=== PATIENT | female | born 1985 | race Hispanic/Latino ===

== ENCOUNTER 2018-01-30 01:52 | Emergency (ER) | payer OTHER ==
[~2018-01-30] VITALS: Ht 149.9 cm; Wt 68.0 kg
--- NOTE | 2018-01-30 02:18 | ED GENERAL ADULT ---
History of Present Illness General Chief Complaint: Chest Pain Stated Complaint: [place] C/O "SHARP CHEST PAIN" X'S 2 HRS Source: patient Exam Limitations: no limitations Vital Signs & Intake/Output Vital Signs & Intake/Output Vital Signs Date Time Temp Pulse Resp B/P B/P Pulse O2 O2 Flow FiO2 Mean Ox Delivery Rate 01/30 0616 98.0 84 18 103/67 98 Room Air 01/30 0459 97.1 79 18 119/63 98 Room Air 01/30 0232 100 Room Air 01/30 0205 97.0 105 18 122/78 97 Room Air Allergies Coded Allergies: No Known Allergies (01/30/18) Reconcile Medications No Known Home Medications Triage Note: TRIAGE: PATIENT TO ER FROM HOME REPORTING SOB/ CHEST DISCOMFORT X 2 HOURS, "LIKE A DISCOMFORT, BLOATED FEELING." DENIES NAUSEA/ ABD PAIN/ V/D. PATIENT REPORTING LAST MENSES 3 WEEKS AGO. EKG NSR, VSS. Triage Nurses Notes Reviewed? yes Onset: Abrupt Duration: week(s): Timing: recent history : No Patient currently breastfeeds: No HPI: 01/30/18 3:14 AM 32-year-old female presents to the emergency Department with shortness of breath. The patient states she was driving home and she felt like there was a weight on her chest and she was having difficulty breathing. She's been having intermittent symptoms over the past month. She saw her primary care doctor who told her it is likely anxiety and/or reactive airway disease; she was given an albuterol pump and she has not used this. She denies any oral contraceptives. She denies any family history of blood clots or coronary artery disease at a young age. She denies any other medical problems or surgical history. Past History Travel History Traveled to [place] past 21 day No Medical History Any Pertinent Medical History? 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 No Review of Systems Review of Systems Constitutional: Denies: fever. EENTM: Denies: visual changes. Respiratory: Reports: short of breath. Denies: cough. Cardiovascular: Denies: chest pain. GI: Denies: abdominal pain. Genitourinary: Reports: no symptoms. Musculoskeletal: Reports: no symptoms. Skin: Reports: no symptoms. Neurological/Psychological: Reports: no symptoms. Hematologic/Endocrine: Reports: no symptoms. Immunologic/Allergic: Reports: no symptoms. Physical Exam Physical Exam General Appearance: well developed/nourished, alert, awake, anxious, mild distress Head: atraumatic, normal appearance Eyes: Bilateral: normal appearance, PERRL, EOMI. Ears, Nose, Throat: normal pharynx, normal ENT inspection Neck: normal inspection, supple, full range of motion Respiratory: normal breath sounds, chest non-tender, no respiratory distress Cardiovascular: regular rate/rhythm Peripheral Pulses: 4+ radial (R), 4+ radial (L) Gastrointestinal: soft, non-tender Back: normal range of motion Extremities: normal inspection Neurologic/Psych: no motor/sensory deficits, awake, alert, oriented x 3 Skin: intact, normal color, warm/dry Core Measures ACS in differential dx? No CVA/TIA Diagnosis: No Sepsis Present: No Sepsis Focused Exam Completed? No Progress Differential Diagnoses I considered the following diagnoses in my evaluation of the patient: [Reactive airway disease acute coronary syndrome, pulmonary embolism, pneumothorax, reactive asthma, anxiety] Plan of Care: Orders Procedure Date/time Status TROPONIN LEVEL 01/30 313 Complete HUMAN BETA HCG SCREEN 01/30 313 Complete D-DIMER 01/30 313 Complete COMPREHENSIVE METABOLIC PANEL 01/30 313 Complete CBC WITHOUT DIFFERENTIAL 01/30 313 Complete EKG 01/30 0155 Active Laboratory Tests 01/30/18 0330: Anion Gap 12, Estimated GFR > 60, BUN/Creatinine Ratio 25.0, Glucose 92, Calcium 9.0, Total Bilirubin 0.2, AST 28, ALT 36, Alkaline Phosphatase 81, Troponin I < 0.01, Total Protein 7.3, Albumin 4.3, Globulin 3.0, Albumin/Globulin Ratio 1.4, Total Beta HCG NEGATIVE, D-Dimer High Sensitivty < 200, CBC w Diff NO MAN DIFF REQ, RBC 4.36, MCV 88.8, MCH 30.6, MCHC 34.5, RDW 13.6, MPV 7.6, Gran % 53.9, Lymphocytes % 37.6, Monocytes % 6.4, Eosinophils % 1.1, Basophils % 1.0, Absolute Granulocytes 4.4, Absolute Lymphocytes 3.1, Absolute Monocytes 0.5, Absolute Eosinophils 0.1, Absolute Basophils 0.1 Initial ED EKG: NSR Departure Departure Disposition: STILL A PATIENT Condition: Stable Clinical Impression Primary Impression: Chest pain as manifestation of blood transfusion reaction Referrals: Unknown (PCP/Family) Departure Forms: Customer Survey General Discharge Information Prescriptions: Current Visit Scripts No Known Home Medications Comments 01/30/18 6:36 AM Patient got complete relief with the albuterol nebulizer. Chest x-ray, EKG, and labs all normal. D-dimer is negative. She is not . She is found having intermittent symptoms for over a month therefore serial troponins were not done. Critical Care Note Critical Care Note Critical Care Time: non-applicable
[2018-01-30 03:42] LABS: ABSOLUTE BASOPHIL COUNT 0.1 /CUMM (0.0-0.2); ABSOLUTE EOSINOPHIL COUNT 0.1 /CUMM (0.0-0.7); ABSOLUTE GRANULOCYTE CT 4.4 /CUMM (1.4-6.5); ABSOLUTE LYMPH COUNT 3.1 /CUMM (1.2-3.4); ABSOLUTE MONOCYTE COUNT 0.5 /CUMM (0.10-0.60); EOSINOPHIL % 1.1 % (0-5); GRANULOCYTE % 53.9 % (42.2-75.2); HEMATOCRIT 38.7 % (37-47); MEAN CORPUSCULAR HGB 30.6 PG (27.0-31.0); MEAN CORPUSCULAR HGB CONC 34.5 G/DL (33.0-37.0); MEAN CORPUSCULAR VOLUME 88.8 FL (81.0-99.0); MEAN PLATELET VOLUME 7.6 FL (7.4-10.4); PLATELET COUNT 245 /CUMM (130-400); RBC DISTRIBUTION WIDTH 13.6 % (11.5-14.5); RED BLOOD CELL CT 4.36 /CUMM (4.20-5.40); WHITE BLOOD CELL COUNT 8.2 /CUMM (4.8-10.8)
--- NOTE | 2018-01-30 06:12 | RADIOLOGY REPORT ---
EXAMINATION: XR PORTABLE CHEST CLINICAL INFORMATION: Shortness of breath COMPARISON: None TECHNIQUE: Portable frontal view of the chest was obtained. FINDINGS: The lungs are well expanded. There is no focal consolidation, edema, or effusion. No pneumothorax. The cardiomediastinal silhouette is within normal limits. No acute osseous abnormality. IMPRESSION: No acute pulmonary finding.
[2018-01-30] MEDS ORDERED: PROVENTIL HFA6.7 GM INH (06:53)
== END 2018-01-30 07:08 ==
LOC: ERH 01:52
PROVIDERS: Emergency Medicine
DX: R07.89 Other chest pain (principal)
CPT/HCPCS: 1263; 71045; 93005; 93010